=== PATIENT | female | born 1990 | race Caucasian/White ===

== ENCOUNTER 2017-03-18 08:52 | Day surgery (SDC) | payer OTHER ==
[2017-03-18] VITALS (14 sets, daily range): BP systolic 109–135; BP diastolic 67–88; PULSE 87–101; RESP 16–22; Ht 167.6 cm; Wt 97.0 kg
[~2017-03-18] VITALS: Ht 167.6 cm; Wt 97.0 kg
[~2017-03-18 08:52] MED LIST: CIPROFLOXACIN 400 MG in D5W 200 ML IVPB SCH
--- NOTE | 2017-03-18 10:00 | HPN ---
Date/Time of Note Date/Time of Note DATE: 03/18/17 TIME: 10:00 Interval H&P Admission Note Pt. seen H&P reviewed: No system changes GREG MARROQUIN Mar 18, 2017 10:00
[2017-03-18] MEDS ORDERED: LIDOCAINE 2% (SDV) 5 ML INJ ONE (10:14)
[2017-03-18] MEDS ORDERED: ROCURONIUM 50 MG INJ ONE (10:14)
[2017-03-18] MEDS ORDERED: GLYCOPYRROLATE 0.4 MG INJ ONE (10:14)
[2017-03-18] MEDS ORDERED: SUCCINYLCHOLINE CHLORIDE 100 MG/5 ML SYG IV ONE (10:14)
[2017-03-18] MEDS ORDERED: PROPOFOL 20 ML ONE (10:15)
[2017-03-18] MEDS ORDERED: MEPERIDINE 100 MG INJ ONE (10:15)
[2017-03-18] MEDS ORDERED: NEOSTIGMINE 3 MG/3 ML SYRINGE ONE (10:15)
[2017-03-18] MEDS ORDERED: CIPROFLOXACIN 400MG/D5W 200 ML ONE (10:18)
[2017-03-18] MEDS ORDERED: ONDANSETRON 4 MG INJ ONE (10:45)
[2017-03-18] MEDS ORDERED: METOCLOPRAMIDE 10 MG INJ ONE (10:45)
--- NOTE | 2017-03-18 11:30 | PDOCDIS ---
Discharge Instructions CONDITION Patient Condition: Good HOME CARE INSTRUCTIONS: Diet Instructions: Regular ACTIVITY: Activity Restrictions: No Restrictions FOLLOW UP/APPOINTMENTS Follow-up Plan 2 weeks after a plain x ray, call office to schedule SCHOOL/WORK RELEASE May return to School/Work with: No Restrictions GREG MARROQUIN Mar 18, 2017 11:30
[2017-03-18] MEDS ORDERED: HYDROmorphONE (0.2 MG/ML) 10ML SYG IV ONE (11:33)
--- NOTE | 2017-03-18 11:35 | OPR ---
Date/Time of Note Date/Time of Note DATE: 03/18/17 TIME: 11:32 Operative Report Preoperative Diagnosis right proximal ureteral stone Postoperative Diagnosis same Operation/Procedure Performed right eswl Surgeon bettina signature line Stereo Plotter Operator kristen Anesthesia Type: general Estimated Blood Loss: none Transfusion none Specimen none Grafts/Implants none Tubes/Drains none Complications none Pt Condition Post Procedure: stable Disposition: PACU Indications stone Procedure Description dictated [id number] GREG MARROQUIN Mar 18, 2017 11:35
--- NOTE | 2017-03-18 11:35 | OPR ---
Date/Time of Note Date/Time of Note DATE: 03/18/17 TIME: 11:32 Operative Report Preoperative Diagnosis right proximal ureteral stone Postoperative Diagnosis same Operation/Procedure Performed right eswl Surgeon bettina signature line Bodily Injury Adjuster kristen Anesthesia Type: general Estimated Blood Loss: none Transfusion none Specimen none Grafts/Implants none Tubes/Drains none Complications none Pt Condition Post Procedure: stable Disposition: PACU Indications stone Procedure Description dictated [id number] GREG MARROQUIN Mar 18, 2017 11:35
--- NOTE | 2017-03-18 11:35 | OPR ---
Date/Time of Note Date/Time of Note DATE: 03/18/17 TIME: 11:32 Operative Report Preoperative Diagnosis right proximal ureteral stone Postoperative Diagnosis same Operation/Procedure Performed right eswl Surgeon bettina signature line Cutter Hand kristen Anesthesia Type: general Estimated Blood Loss: none Transfusion none Specimen none Grafts/Implants none Tubes/Drains none Complications none Pt Condition Post Procedure: stable Disposition: PACU Indications stone Procedure Description dictated [id number] GREG MARROQUIN Mar 18, 2017 11:35
[2017-03-18] MEDS ORDERED: HYDROmorphONE (0.2 MG/ML) 10ML SYG IV PRN ×3 (12:00)
[2017-03-18] MEDS ORDERED: MEPERIDINE 25 MG INJ IV PRN (12:00)
[2017-03-18] MEDS ORDERED: ONDANSETRON 4 MG INJ IV PRN (12:00)
[2017-03-18] MEDS ORDERED: DIPHENHYDRAMINE 50 MG INJ IV PRN (12:00)
[2017-03-18] MEDS ORDERED: FENTAnyl 50 MCG/ML VIAL IV PRN ×3 (12:00)
[2017-03-18] MEDS ORDERED: METOCLOPRAMIDE 10 MG INJ IV PRN (12:00)
[2017-03-18] MEDS ORDERED: MIDAZOLAM 1 MG/ML 2 ML INJ IV PRN (12:00)
[2017-03-18] MEDS ORDERED: OXYCODONE/ACETAMINOPHEN (5/325) TAB PO PRN ×2 (12:00)
--- NOTE | 2017-03-18 13:06 | HP ---
DATE OF ADMISSION: 03/18/2017 HISTORY OF PRESENT ILLNESS: Ginger is a 26-year-old female with a history of a right ureteral stone . She is status post insertion of a right ureteral stent on 12/03/2016. A CT scan on 02/11/2017 de monstrates a right ureteral stent to be in place with a 5 mm right proximal ureteral stone at the le kemi of L3. She now presents for right extracorporeal shockwave lithotripsy. PAST SURGICAL HISTORY: Insertion right ureteral stent, status post cholecystectomy. PAST MEDICAL HISTORY: Cholelithiasis. ALLERGIES: NONE. CURRENT MEDICATIONS: None. PHYSICAL EXAMINATION: LUNGS: Good breath sounds bilaterally. HEART: Regular rate and rhythm. ABDOMEN: Soft, nondistended, nontender. No palpable masses. Flank with no CVA tenderness, no mass es. IMPRESSION: Right proximal ureteral stone. PLAN: Right extracorporeal shockwave lithotripsy. How the procedure is performed, potential compli cations, side effects, complications associated with an encrusted stent, staged intervention, postop erative obstruction, secondary procedure, open procedure, damage to the surrounding structures, infe ction and sepsis, as well as anesthetic risks have all been explained. Laurence and postoperative cours e have been reviewed. All questions have been answered. There has been no interval change in her h ealth or physical exam and she would like to proceed as directed. Dictated By: GREG BOX/DAVID Conf#: [id number] DID#: [id number]
--- NOTE | 2017-03-18 13:22 | OPR ---
DATE OF OPERATION: BRIEF HISTORY: Ginger is a 26-year-old female with a history of recurrent urinary tract infection s tatus post insertion of stent in November for an obstructing 5 mm right proximal ureteral stone at the l evel of L3. Follow up CT scan demonstrates a 5 mm stone at the level of L3 with a stent in place. She presents today for right extracorporeal shockwave lithotripsy. How the procedure was performed and postoperative course have all been reviewed. There has been no interval change in her health or physical examination. PREOPERATIVE DIAGNOSIS: Right proximal ureteral stone. POSTOPERATIVE DIAGNOSIS: Right proximal ureteral stone. OPERATION PERFORMED: Right extracorporeal shockwave lithotripsy. SURGEON: Alfred Marroquin MD ANESTHESIA: General. COMPLICATIONS: None. FINDINGS: Proximal right obstructing stone. DESCRIPTION OF PROCEDURE: The patient was brought into the operating room and placed on the [employer] SLX lithotripter for right extracorporeal shock wave lithotripsy. A timeout was undertaken and appropriate pressure points were padded and she received preoperative antibiotic therapy. Inte rmittent fluoroscopy was obtained in the AP and lateral projection, which demonstrated the right ure teral stent to be in proper anatomical position. At the level of L3, a 5 mm radiodense stone was id entified and placed in the proper focal point which allowed for extracorporeal shockwave lithotripsy with initial energy setting of 1 and this was increased to 8, yet not maintained. At 200 shocks, a pause was undertaken. Intermittently the therapy head was repositioned to keep the stone burden i n proper anatomical position. A total of 3000 shocks were delivered. Excellent fragmentation was n oted. She was transferred to recovery room in stable condition and discharged to home on [place] 5 one to 2 tab p.o. q.6h. p.r.n., dispensed #30, no refill. She was given a prescription for Augmen tin 500 mg p.o. b.i.d. for a 3-day period of time, dispensed #6, no refill. A repeat KUB with obliques will be obtained in 2 weeks' time and then she will follow up in the offi ce. If no radiodense stone is appreciated then cystoscopy, stent removal. All questions have been answered. Dictated By: ALFRED MARROQUIN MD EGR/NTS Conf#: [id number] [facility]#: [id number]
--- NOTE | 2017-03-18 13:22 | OPR ---
DATE OF OPERATION: BRIEF HISTORY: Ginger is a 26-year-old female with a history of recurrent urinary tract infection s tatus post insertion of stent in November for an obstructing 5 mm right proximal ureteral stone at the l evel of L3. Follow up CT scan demonstrates a 5 mm stone at the level of L3 with a stent in place. She presents today for right extracorporeal shockwave lithotripsy. How the procedure was performed and postoperative course have all been reviewed. There has been no interval change in her health or physical examination. PREOPERATIVE DIAGNOSIS: Right proximal ureteral stone. POSTOPERATIVE DIAGNOSIS: Right proximal ureteral stone. OPERATION PERFORMED: Right extracorporeal shockwave lithotripsy. SURGEON: Alfred Marroquin MD ANESTHESIA: General. COMPLICATIONS: None. FINDINGS: Proximal right obstructing stone. DESCRIPTION OF PROCEDURE: The patient was brought into the operating room and placed on the [employer] SLX lithotripter for right extracorporeal shock wave lithotripsy. A timeout was undertaken and appropriate pressure points were padded and she received preoperative antibiotic therapy. Inte rmittent fluoroscopy was obtained in the AP and lateral projection, which demonstrated the right ure teral stent to be in proper anatomical position. At the level of L3, a 5 mm radiodense stone was id entified and placed in the proper focal point which allowed for extracorporeal shockwave lithotripsy with initial energy setting of 1 and this was increased to 8, yet not maintained. At 200 shocks, a pause was undertaken. Intermittently the therapy head was repositioned to keep the stone burden i n proper anatomical position. A total of 3000 shocks were delivered. Excellent fragmentation was n oted. She was transferred to recovery room in stable condition and discharged to home on [place] 5 one to 2 tab p.o. q.6h. p.r.n., dispensed #30, no refill. She was given a prescription for Augmen tin 500 mg p.o. b.i.d. for a 3-day period of time, dispensed #6, no refill. A repeat KUB with obliques will be obtained in 2 weeks' time and then she will follow up in the offi ce. If no radiodense stone is appreciated then cystoscopy, stent removal. All questions have been answered. Dictated By: ALFRED MARROQUIN MD EGR/NTS Conf#: [id number] [facility]#: [id number]
== END 2017-03-18 13:20 | disposition home or self-care (01) ==
LOC: SDS 08:52
PROVIDERS: ATTEND Urology
DX: N20.1 Calculus of ureter (principal); N39.0 Urinary tract infection, site not specified
CPT/HCPCS: 50590; 84703; J0744; J1170; J2405; J2765; Z7512; Z7610; J2175; J2710